=== PATIENT | female | born 1955 | race Caucasian/White ===

== ENCOUNTER 2018-10-24 07:47 | Day surgery (SDC) | payer OTHER ==
[~2018-10-24] VITALS: Ht 167.6 cm; Wt 114.7 kg
[~2018-10-24 07:47] MED LIST: Bactrim Ds Tab1 EACH PO; OMEPRAZOLE20 MG PO
--- NOTE | 2018-10-24 08:50 | NUR ---
Ambulatory in Day Surgery History, Chart, Medications and Allergies reviewed before start of procedure. Patient confirms NPO status and agrees with scheduled surgery. Pre-Op teaching done. Pt verbalizes understanding.
--- NOTE | 2018-10-24 12:30 | NUR ---
pt transferred to unit on own bed, a/0 x 4, pleasant/cooperative, reports no n/v, no pain, feeling to toes, able to rotate ankle and lift operative leg
--- NOTE | 2018-10-24 16:34 | NUR ---
shift summary: post op vss and complete, pt tolerated PO intake with no n/v, PT worked with physical therapy x 1 approx 1530, ambulated in hallway. sensation and gross movement returned to operative limb withstanding numbness in the top of the R foot and a heavy feeling. pt reported pain at 6/10 following therapy, medicated per mar with decrease in reported pain to 3/10. Pt oob to bathroom with one void following urge to urinate. pt has had visitors x 3 this shift.
--- NOTE | 2018-10-25 04:10 | NUR ---
SHIFT SUMMARY PT A&O X4 T/O SHIFT. POD#1 R TKA; DRESSING CDI T/O SHIFT. PT STS N/T IN RLE RESOLVED OVER SHIFT. PPPX4, BRISK CAP REFILL. PAIN MANAGED PER EMAR. SCD'S AND IMER'S TO BLE'S. VSS; NO ACUTE CHANGES. PT UP TO TOILET AND AMBULATED IN PALMER X1 W/ SBA AND FWW. CALL LIGHT IN REACH; PT DEMONSTRATES USE. WCTM UNTIL REPORT TO DAY SHIFT RN.
[2018-10-25 04:14] LABS: BASOPHILS ABSOLUTE AUTO 0.01 K/mm3 (0.00-0.23); BASOPHILS PERCENT AUTO 0 % (0-2); EOSINOPHILS ABSOLUTE AUTO 0.01 K/mm3 (0.00-0.68); EOSINOPHILS PERCENT AUTO 0 % (0-6); Hematocrit 35.1 % (33.0-51.0); Hemoglobin 11.4 g/dL (11.5-16.0); IMMATURE GRAN ABSOLUTE AUTO 0.03 K/mm3 (0.00-0.10); IMMATURE GRAN PERCENT AUTO 0 % (0-1); LYMPHOCYTES ABSOLUTE AUTO 1.09 K/mm3 (0.84-5.20); LYMPHOCYTES PERCENT AUTO 13 % (21-46); MONOCYTES ABSOLUTE AUTO 0.48 K/mm3 (0.16-1.47); MONOCYTES PERCENT AUTO 6 % (4-13); Mean Corpuscular HGB 31.9 pg (26.0-34.0); Mean Corpuscular HGB Conc 32.5 g/dL (31.5-36.5); Mean Corpuscular Volume 98 fL (80-100); Mean Platelet Volume 9.7 fL (9.1-12.4); NEUTROPHILS ABSOLUTE AUTO 6.51 K/mm3 (1.96-9.15); NEUTROPHILS PERCENT AUTO 80 % (41-73); Platelet Count 192 K/mm3 (150-400); RDW Standard Deviation 43.7 fL (35.1-46.3); Red Blood Cell Count 3.57 M/mm3 (3.80-5.20); White Blood Cell Count 8.13 K/mm3 (4.00-11.30)
[2018-10-25 04:35] LABS: Anion Gap 6 mmol/L (6-16); Blood Urea Nitrogen 16 mg/dL (8-24); Bun/Creatinine Ratio 20.8 (12.0-20.0); CO2, Blood 28 mmol/L (21-32); Calcium, Blood 8.4 mg/dL (8.5-10.1); Chloride, Blood 104 mmol/L (98-108); Creatinine, Blood 0.77 mg/dL (0.40-1.00); Glomerular Filtration Rate >60 (60-); Glucose, Blood 150 mg/dL (70-99); Potassium, Blood 4.1 mmol/L (3.5-5.5); Sodium, Blood 138 mmol/L (136-145)
--- NOTE | 2018-10-25 07:31 | NUR ---
recvd report from previous shift rn vanessa, pt sittin up in chair, a/0 x 4, pleasant, reports pain controlled at 3/10, has ambulated x 2 last shift. call light within reach
--- NOTE | 2018-10-25 07:36 | NUR ---
SERENITY Licona rounding on pt
[2018-10-25] MEDS ORDERED: XARELTO15 MG PO (09:32)
[2018-10-25] MEDS ORDERED: Percocet 5-3251 EACH PO (09:34)
--- NOTE | 2018-10-25 10:50 | NUR ---
pt provided with discharge instructions, printed material, written prescriptions. peripheral IV removed wnl. pt's field hockey and lacrosse coach removed pt's belongings to awaiting vehicle. pt escorted via wheelchair to awaiting vehicle.
--- NOTE | 2018-10-25 11:22 | NUR ---
Patient is in the discharge process when I enter patient's room. Patient is kind and talkative. Patient shares about her the loss of her 5 yrs ago and how her grief and household has been managed since. 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 I challenged patient in the area of self-care, I reinforced helpful attitudes and practices, I provided grief support, pastoral crisis intervention counselor and prayer. Patient responded well and showed signs of restored leon.
== END 2018-10-25 10:52 | disposition home or self-care (01) ==
LOC: ORSCMMR 07:47 → ORD 09:15 → SURS 12:17 → ORSCMMR 12:17 → SURS 10-25 10:52
PROVIDERS: Orthopaedic Surgery
PROC: 0SRC0JA Replacement of Right Knee Joint with Synthetic Substitute, Uncemented, Open Approach (ICD-10-PCS; principal; 2018-10-24 09:15)
DX: M17.11 Unilateral primary osteoarthritis, right knee (principal); Z01.818 Encounter for other preprocedural examination; K21.9 Gastro-esophageal reflux disease without esophagitis; E66.01 Morbid (severe) obesity due to excess calories; Z68.41 Body mass index [BMI] 40.0-44.9, adult; Z79.899 Other long term (current) drug therapy
CPT/HCPCS: 36415; 73560-RT; 80048; 85025; 86850; 86900; 86901; 88300; 97110; 97116; 97161; 97530; C1776; J0171; J0690; J0735; J1100; J1170; J1885; J2250; J2405; J2704; J2795; J7120

== ENCOUNTER 2019-01-10 13:16 | Day surgery (SDC) | payer OTHER ==
[~2019-01-10] VITALS: Ht 167.6 cm; Wt 113.3 kg
[~2019-01-10 13:16] MED LIST changes: +Percocet 5-3251 EACH PO; +XARELTO15 MG PO
== END 2019-01-10 15:28 | disposition home or self-care (01) ==
LOC: ORSCSDS 13:16
DX: Z12.11 Encounter for screening for malignant neoplasm of colon (principal); K63.5 Polyp of colon; K64.8 Other hemorrhoids; E78.00 Pure hypercholesterolemia, unspecified; E66.01 Morbid (severe) obesity due to excess calories; F41.9 Anxiety disorder, unspecified; I82.401 Acute embolism and thrombosis of unspecified deep veins of right lower extremity; Z68.41 Body mass index [BMI] 40.0-44.9, adult; Z79.899 Other long term (current) drug therapy
CPT/HCPCS: 88305; J2704; J7120

== ENCOUNTER 2019-02-27 06:12 | Day surgery (SDC) | payer OTHER ==
[~2019-02-27] VITALS: Ht 167.6 cm; Wt 114.6 kg
--- NOTE | 2019-02-27 06:35 | NUR ---
Ambulatory in Day Surgery History, Chart, Medications and Allergies reviewed before start of procedure.Lungs clear T/O to Auscultation. Patient confirms NPO status and agrees with scheduled surgery. Patient reports completing Chlorhexadine shower X2 prior to admission to hospital.Surgical site prepped with 2% Chlorhexidine cloth wipe.
--- NOTE | 2019-02-27 07:52 | NUR ---
02/27/19 0752 Cyn Zuniga PT HAS AN ABRASION ON LATERAL LEFT KNEE AND LATERAL/POSTERIOR ANKLE PRIOR TO PROCEDURE, MD AWARE.
--- NOTE | 2019-02-27 10:22 | NUR ---
PT ARRIVED TO UNIT AT APROX 0945 from PACU. PT DENIES PAIN, SENSATION INTACT LLE. DENIES N/V. DRESSING C/D/I. POLAR PACK IN PLACE.
--- NOTE | 2019-02-27 16:32 | NUR ---
SHIFT SUMMARY PT POD 0 L TKA. HARJIT WRAP C/D/I. SCDS/IMER HOSE/POLAR PACK IN PLACE. PAIN MANAGED PER EMAR. PT UP TO CHAIR 1 PERSON SBA, WORKED WITH THERAPY AND VOIDING WELL. PLAN IS TO DC HOME TOMORROW IF PT CLEARS PT.
[2019-02-28 04:50] LABS: BASOPHILS ABSOLUTE AUTO 0.01 K/mm3 (0.00-0.23); BASOPHILS PERCENT AUTO 0 % (0-2); EOSINOPHILS PERCENT AUTO 0 % (0-6); Hematocrit 36.6 % (33.0-51.0); Hemoglobin 11.7 g/dL (11.5-16.0); IMMATURE GRAN ABSOLUTE AUTO 0.02 K/mm3 (0.00-0.10); IMMATURE GRAN PERCENT AUTO 0 % (0-1); LYMPHOCYTES ABSOLUTE AUTO 0.97 K/mm3 (0.84-5.20); LYMPHOCYTES PERCENT AUTO 12 % (21-46); MONOCYTES ABSOLUTE AUTO 0.47 K/mm3 (0.16-1.47); MONOCYTES PERCENT AUTO 6 % (4-13); Mean Corpuscular HGB 30.5 pg (26.0-34.0); Mean Corpuscular Volume 95 fL (80-100); NEUTROPHILS ABSOLUTE AUTO 6.89 K/mm3 (1.96-9.15); NEUTROPHILS PERCENT AUTO 83 % (41-73); Platelet Count 206 K/mm3 (150-400); RDW Coefficient Variation 12.4 % (11.7-14.2); RDW Standard Deviation 43.6 fL (35.1-46.3); Red Blood Cell Count 3.84 M/mm3 (3.80-5.20); White Blood Cell Count 8.36 K/mm3 (4.00-11.30)
[2019-02-28 05:07] LABS: Anion Gap 7 mmol/L (6-16); Blood Urea Nitrogen 18 mg/dL (8-24); Bun/Creatinine Ratio 21.8 (12.0-20.0); CO2, Blood 27 mmol/L (21-32); Calcium, Blood 8.8 mg/dL (8.5-10.1); Chloride, Blood 104 mmol/L (98-108); Creatinine, Blood 0.82 mg/dL (0.40-1.00); Glomerular Filtration Rate >60 (60-); Glucose, Blood 157 mg/dL (70-99); Potassium, Blood 3.8 mmol/L (3.5-5.5); Sodium, Blood 138 mmol/L (136-145)
--- NOTE | 2019-02-28 05:52 | NUR ---
SHIFT SUMMARY: MATHEW IS POD1 FOR A LEFT TOTAL KNEE. SHE IS A&OX4, TOLERATING PO INTAKE WELL. SHE AMBULATED TO THE BATHROOM WITH A 1 PERSON STANDBY ASSIST. SHE IS VOIDING WITHOUT DIFFICULTIES. SHE IS TOLERATING PO INTAKE WELL. HER PAIN IS WELL CONTROLLED WITH PO MEDICATIONS. IMER HOSE, PAS AND POLAR PACK IN PLACE. SHE RESTED INTERMITTENTLY THROUGHOUT THE NIGHT. SHE IS ABLE TO MAKE HER NEEDS KNOWN. SHE IS LYING IN BED WITH HER CALL LIGHT IN REACH.
[2019-02-28] MEDS ORDERED: XARELTO20 MG PO (07:47)
[2019-02-28] MEDS ORDERED: Percocet 5-3251 EACH PO (07:48)
[2019-02-28] MEDS ORDERED: OXYC10ER PO (07:48)
--- NOTE | 2019-02-28 09:50 | NUR ---
PT WORKING WITH THERAPY AT 0930. TOLERATING IT WELL.
--- NOTE | 2019-02-28 11:33 | NUR ---
DISCHARGE NOTE PATIENT D/C HOME FROM UNIT VIA WHEELCHAIR AT 1055 TODAY. DISCHARGE INSTRUCTIONS, EXTRA DRESSINGS, POLAR PAC, AND PERSONAL BELONGINGS PROVIDED TO PT/FRIEND. SCRIPTS GIVEN TO DAUGHTER PRIOR TO D/C PER PT REQUEST. PT CLEARED THERAPY THIS MORNING AND TOLERATED ACTIVITY WELL. REPORTS PAIN AT ACCEPTABLE LEVEL W/ PO MEDICATIONS. TOLERATING REGULAR DIET. DECLINED ANY CONCERNS AT TIME OF D/C, ENCOURAGED TO CALL IF ANY SHOULD ARISE.
== END 2019-02-28 10:56 | disposition home or self-care (01) ==
LOC: ORSCMMR 06:12 → ORD 07:30 → ORSCMMR 07:30 → SURS 09:36 → ORD 13:15 → ENPENDDIS 02-28 08:07 → SURS 02-28 10:56 → ORSCMMR 02-28 10:56 → ORD 03-01 07:30
PROVIDERS: Orthopaedic Surgery
PROC: 0SRD0JA Replacement of Left Knee Joint with Synthetic Substitute, Uncemented, Open Approach (ICD-10-PCS; principal; 2019-02-27 07:30)
DX: M17.12 Unilateral primary osteoarthritis, left knee (principal); Z01.818 Encounter for other preprocedural examination; E78.5 Hyperlipidemia, unspecified; E11.9 Type 2 diabetes mellitus without complications; E66.01 Morbid (severe) obesity due to excess calories; Z68.41 Body mass index [BMI] 40.0-44.9, adult; K21.9 Gastro-esophageal reflux disease without esophagitis; Z79.899 Other long term (current) drug therapy
CPT/HCPCS: 36415; 73560-LT; 80048; 82947; 85025; 86850; 86900; 86901; 88300; 97116; 97162; 97530; C1776; C9113; J0171; J0690; J0735; J1100; J1200; J1885; J2250; J2405; J2704; J2795; J3010; J7120; Q0163

== ENCOUNTER → 2023-05-25 | Outpatient (CLI) | payer OTHER ==
[~2023-05-25] MED LIST changes: +OXYC10ER PO; +XARELTO20 MG PO
[2023-05-27 05:22] LABS: FREE URINE KAPPA EXCRETION/DAY 37.44 mg/d; FREE URINE KAPPA LIGHT CHAINS 11.7 mg/L (0.00-32.90); FREE URINE LAMBDA EXCRET/DAY 4.58 mg/d; FREE URINE LAMBDA LIGHT CHAIN 1.43 mg/L (0.00-3.79)
[2023-05-31 15:01] LABS: ALBUMIN %,URINE 45.3 %; ALPHA-2 %,URINE 10.8 %; BETA GLOBULIN %,URINE 11.8 %; GAMMA GLOBULIN %,URINE 27.1 %; HOURS COLLECTED 24 hr; PARAPROTEIN %,URINE 16.1 %; PARAPROTEIN EXCRETION/24 HOUR 41.2; TOTAL PROTEIN,URINE-PER VOLUME 8 mg/dL; TOTAL VOLUME 3200 mL; URINE 24 HOUR PROTEIN 256 mg/d (40-150)
== END | disposition home or self-care (01) ==
LOC: LAB SHORT 08:18 → LAB 08:18 → LAB FUT 05-19 11:40
PROVIDERS: Internal Medicine
DX: D47.2 Monoclonal gammopathy (principal)
CPT/HCPCS: 81050; 83521; 84156; 84166; 86335

== ENCOUNTER 2023-10-14 13:18 | Day surgery (SDC) | payer OTHER ==
[~2023-10-14] VITALS: Ht 167.6 cm; Wt 90.5 kg
[2023-10-14] VITALS (12 sets, daily range): BP systolic 146–200; BP diastolic 79–125
[~2023-10-14 13:18] MED LIST changes: +Lactated Ringer's 1,000 ML IV SCH
[2023-10-14] MEDS ORDERED: propofoL 20 ML IV ONE (14:32)
--- NOTE | 2023-10-14 14:41 | NUR ---
10/14/23 1441 Mishel Gimenez HISTORY, CHART, MEDICATIONS AND ALLERGIES REVIEWED BEFORE START OF PROCEDURE. PATIENT CONFIRMS NPO STATUS AND AGREES WITH SCHEDULED PROCEDURE. 3-LEAD EKG REVIEWED WITH PHYSICIAN PRIOR TO START OF PROCEDURE. MONITOR INTACT WITH CONTINUOUS PULSE OXIMETRY,CAPNOGRAPHY, 3-LEAD EKG, INTERMITTENT BP. SUPPLEMENTAL O2 TO BE TITRATED THROUGHOUT PROCEDURE TO MAINTAIN O2 SATURATION ABOVE 90%. PATIENT DETERMINED TO BE ASA APPROPRIATE FOR PROPOFOL SEDATION PRIOR TO START OF PROCEDURE BY .MALLAMPATI CLASS 2 AIRWAY: COMPLETE VISUALIZATION OF THE UVULA.
--- NOTE | 2023-10-14 14:58 | NUR ---
PT TO DAY SURGERY STEP DOWN FROM EGD; BEDSIDE REPORT RECEIEVED. PT IS AWAKE, ALERT AND ORIENTED; ABLE TO MOVE SELF IN BED. PT HAS NO COMPLAINTS AT THIS TIME.
--- NOTE | 2023-10-14 15:13 | NUR ---
TOLERATING PO FLUIDS WELL. Discharge instructions reviewed with patient. Patient verbalizes understanding. Copy given to patient to take home. Patient States Post-Procedure ride home has been arranged.
== END 2023-10-14 15:25 | disposition home or self-care (01) ==
LOC: ORSCMMR 13:18 → ORD 14:15 → ORSCMMR 14:45
PROVIDERS: Internal Medicine Gastroenterology
PROC: 0DB68ZX Excision of Stomach, Via Natural or Artificial Opening Endoscopic, Diagnostic (ICD-10-PCS; principal; 2023-10-14 14:45)
DX: R93.3 Abnormal findings on diagnostic imaging of other parts of digestive tract (principal); K20.90 Esophagitis, unspecified without bleeding; K44.9 Diaphragmatic hernia without obstruction or gangrene
CPT/HCPCS: 88305; 88342; J2704; J7120

== ENCOUNTER → 2023-11-04 | Outpatient (CLI) | payer OTHER ==
[~2023-11-04] MED LIST changes: -Lactated Ringer's 1,000 ML IV SCH
[2023-11-04 14:49] LABS: Very Low Density Lipoprot Chol 16 mg/dL (6-32)
[2023-11-04 14:50] LABS: CHOL/HDL RATIO 2.7; Cholesterol 183 mg/dL (50-200); HDL Cholesterol 68 mg/dL (>39); LDL/HDL RATIO 1.5; Low Density Lipoprotein Chol 99 mg/dL (0-110); Triglycerides 82 mg/dL (30-160)
== END | disposition home or self-care (01) ==
LOC: LAB 13:37 → LAB SHORT 13:37
PROVIDERS: Internal Medicine
DX: I65.22 Occlusion and stenosis of left carotid artery (principal)
CPT/HCPCS: 80061

== ENCOUNTER 2024-06-21 08:10 | Day surgery (SDC) | payer OTHER ==
[2024-06-21] VITALS (14 sets, daily range): BP systolic 103–143; BP diastolic 69–90
[~2024-06-21] VITALS: Ht 168 cm; Wt 97.5 kg
[~2024-06-21 08:10] MED LIST changes: +ASPI81CH PO; +Lactated Ringer's 1,000 ML IV SCH; +propofoL 20 ML IV ONE
--- NOTE | 2024-06-21 08:45 | NUR ---
Ambulatory in Day Surgery History, Chart, Medications and Allergies reviewed before start of procedure.Patient confirms NPO status and agrees with scheduled surgery. Patient states colon prep results clear.Lungs clear T/O to Auscultation. Patient States Post-Procedure ride home has been arranged.
--- NOTE | 2024-06-21 09:07 | NUR ---
06/21/24 0907 Saturnino Stevens CONFIRMED AND REVIEWED H&P, MEDCICATIONS, ALLERGIES, MEDICAL HISTORY, RESPIRATORY HISTORY, VITAL SIGNS, 3-LEAD EKG, CONSENTS, AND PHYSICIAN ORDERS. PATIENT CONFIRMS NPO STATUS AND AGREES WITH SCHEDULED PROCEDURE. MONITOR INTACT WITH CONTINUOUS PULSE OXIMETRY, CAPNOGRAPHY, 3-LEAD EKG, INTERMITTENT BP. SUPPLEMENTAL O2 TO BE TITRATED THROUGHOUT PROCEDURE TO MAINTAIN O2 SATURATION ABOVE 90%. PATIENT DETERMINED TO BE ASA APPROPRIATE FOR PROPOFOL SEDATION PRIOR TO START OF PROCEDURE BY DR. BOWMAN.
--- NOTE | 2024-06-21 09:59 | NUR ---
Discharge instructions reviewed with patient. Patient verbalizes understanding. Copy given to patient to take home. Patient States Post-Procedure ride home has been arranged. Discharged via wheelchair to private car for ride home.
== END 2024-06-21 10:00 | disposition home or self-care (01) ==
LOC: ORSCMMR 08:10 → ORD 09:00 → ORSCMMR 09:00
PROVIDERS: Internal Medicine Gastroenterology
PROC: 0DBN8ZX Excision of Sigmoid Colon, Via Natural or Artificial Opening Endoscopic, Diagnostic (ICD-10-PCS; principal; 2024-06-21 09:00)
DX: Z12.11 Encounter for screening for malignant neoplasm of colon (principal); Z86.0101 Personal history of adenomatous and serrated colon polyps; K63.5 Polyp of colon; K64.8 Other hemorrhoids; Z79.82 Long term (current) use of aspirin
CPT/HCPCS: 88305; J2704; J7120